=== PATIENT | female | born 1960 | race African-American/Black ===

== ENCOUNTER 2016-12-23 02:27 | Observation (INO) | payer OTHER ==
[2016-12-23] VITALS (9 sets, daily range): BP systolic 134–184; BP diastolic 72–98; PULSE 68–105; RESP 16–22; TEMP 97.8–98.4; O2SAT 91–97
[2016-12-23] MEDS ORDERED: ATEN50TA PO (02:58)
[2016-12-23] MEDS ORDERED: SODIUM CHLORIDE 0.9% FLUSH 10 ML FLUSH IVF PRN (03:00)
[2016-12-23] MEDS ORDERED: methylPREDNISolone SOD SUCC 125 MG/2 ML VIAL IVP ONE (03:00)
[2016-12-23] MEDS: RESP: ALBUTEROL 2.5 MG/IPRATROPIUM 0.5 MG NEB (SCH) INH (03:11)
--- NOTE | 2016-12-23 03:18 | RADRPT ---
EXAM DATE/TIME: 12/23/2016 03:02 [facility] COMPARISON: No previous studies available for comparison. INDICATIONS : Shortness of breath for greater then three months. MEDICAL HISTORY : None. SURGICAL HISTORY : None. ENCOUNTER: Initial ACUITY: 3 months PAIN SCORE: 0/10 LOCATION: Bilateral chest FINDINGS: A single view of the chest demonstrates the lungs to be symmetrically aerated without evidence of mas s, infiltrate or effusion. The cardiomediastinal contours are unremarkable. Osseous structures are intact. CONCLUSION: No acute disease. Darrian Platt MD on December 23, 2016 at 3:17 Board Certified Radiologist. This report was verified electronically.
[2016-12-23 03:47] LABS: AUTOMATED NEUTROPHIL # 5.5 TH/MM3 (1.8-7.7); BASOPHIL # 0.1 TH/MM3 (0-0.2); BASOPHIL % 0.6 % (0.0-2.0); EOSINOPHIL # 0.7 TH/MM3 (0-0.4); EOSINOPHIL % 7.2 % (0.0-4.0); HEMATOCRIT 41.9 % (35.0-46.0); HEMO FLAGS DIFF FINAL; LYMPH % 23.5 % (9.0-44.0); LYMPHOCYTE # 2.1 TH/MM3 (1.0-4.8); MEAN CELL VOLUME 87.9 FL (80.0-100.0); MEAN CORPUSCULAR HEMOGLOBIN 29.8 PG (27.0-34.0); MEAN CORPUSCULAR HGB CONC 33.9 % (32.0-36.0); NEUT % 60.7 % (16.0-70.0); PLATELET COUNT 279 TH/MM3 (150-450); RED BLOOD COUNT 4.77 MIL/MM3 (4.00-5.30); RED CELL DISTRIBUTION WIDTH 13.9 % (11.6-17.2); WHITE BLOOD COUNT 9.1 TH/MM3 (4.0-11.0)
[2016-12-23 03:59] LABS: APTT (PATIENT) 27.7 SEC (24.3-30.1); INTERNATIONAL NORMALIZED RATIO 0.9 RATIO; PROTHROMBIN TIME - PATIENT 10.2 SEC (9.8-11.6)
[2016-12-23 04:10] LABS: ALT (GPT) 29 U/L (10-53); ANION GAP 8 MEQ/L (5-15); AST (GOT) 20 U/L (15-37); BICARBONATE 30.1 MEQ/L (21.0-32.0); BLOOD UREA NITROGEN 21 MG/DL (7-18); CHLORIDE 105 MEQ/L (98-107); GLOMERULAR FILTRATION RATE 83 ML/MIN (>89); POTASSIUM 3.2 MEQ/L (3.5-5.1); SODIUM (NA) 143 MEQ/L (136-145)
[2016-12-23 04:13] LABS: ALKALINE PHOSPHATASE 83 U/L (45-117); TOTAL BILIRUBIN ADULT 0.1 MG/DL (0.2-1.0)
[2016-12-23] MEDS ORDERED: IOHEXOL 350 MG/ML 10 ML VIAL (for RAD DIAG) IV ONE (04:39)
[2016-12-23] MEDS ORDERED: RESP: ALBUTEROL 2.5 MG/3 ML NEB (SCH) NEB ONE (05:00)
--- NOTE | 2016-12-23 05:01 | RADRPT ---
EXAM DATE/TIME: 12/23/2016 04:38 [facility] COMPARISON: CHEST SINGLE AP, December 23, 2016, 3:02. INDICATIONS : Shortness of breath. IV CONTRAST: 74 cc Omnipaque 350 (iohexol) IV RADIATION DOSE: 23.23 CTDIvol (mGy) MEDICAL HISTORY : Hypertension. SURGICAL HISTORY : None. ENCOUNTER: Initial ACUITY: 1 month PAIN SCALE: 0/10 LOCATION: Bilateral chest TECHNIQUE: Volumetric scanning of the chest was performed using a pulmonary embolism protocol MIP images were re constructed. Using automated exposure control and adjustment of the mA and/or kV according to patien t size, radiation dose was kept as low as reasonably achievable to obtain optimal diagnostic quality images. FINDINGS: PULMONARY ARTERIES: No filling defects are seen in the pulmonary arteries through the segmental level. LUNGS: There is no consolidation or pneumothorax . No concerning pulmonary nodule is visualized. PLEURAE: There is no pleural thickening or pleural effusion. MEDIASTINUM: There is good visualization of the great vessels of the middle mediastinum. No evidence of mediastin al or hilar adenopathy/mass. MUSCULOSKELETAL: Within normal limits for patient age. MISCELLANEOUS: The visualized upper abdominal organs demonstrate no acute abnormality. CONCLUSION: Negative exam with no evidence of pulmonary embolism. Darrian Platt MD on December 23, 2016 at 4:58 Board Certified Radiologist. This report was verified electronically.
--- NOTE | 2016-12-23 05:29 | PD ---
HPI Chief Complaint: Respiratory Symptoms Time Seen by Provider: 02:43 Travel History International Travel<30 days: No Contact w/Intl Traveler<30days: No Traveled to known affect area: No History of Present Illness HPI Patient is a 56-year-old female comes in complaining of shortness of breath. She says she's been having issues with shortness of breath since August. She says tonight it got worse when she was at her daughter's. Daughters are worried about her comes in to come in. She says she feels a tightness in her chest, but no pain. She has had cough and congestion. She denies fever or chills. She denies any leg swelling. She has been using an albuterol inhaler at home. She denies any smoking. She has no known heart issues. She has never been diagnosed with asthma before. [facility] Past Medical History Hypertension: Yes Tetanus Vaccination: Unknown ?: Not Past Surgical History Surgical History: No Previous Surgery Social History Alcohol Use: Yes (rarely) Tobacco Use: No Substance Use: No Allergies-Medications (Allergen,Severity, Reaction): Coded Allergies: No Known Allergies (Unverified , 12/23/16) Reported Meds & Prescriptions Reported Meds & Active Scripts Active Reported Atenolol 50 Mg Tab 50 Mg PO DAILY Review of Systems Except as stated in HPI: all other systems reviewed are Neg General / Constitutional: No: Fever, Chills HENT: No: Headaches, Lightheadedness Cardiovascular: No: Chest Pain or Discomfort Respiratory: Positive: Cough, Shortness of Breath, Wheezing Gastrointestinal: No: Nausea, Vomiting, Abdominal Pain Musculoskeletal: No: Myalgias, Edema Skin: No Rash, No Change in Pigmentation Neurologic: No: Weakness, Dizziness Physical Exam Narrative GENERAL: Awake and alert, in no acute distress. SKIN: Focused skin assessment warm/dry. HEAD: Atraumatic. Normocephalic. EYES: Pupils equal and round. No scleral icterus. ENT: Mucous membranes pink and moist. NECK: Trachea midline. No JVD. CARDIOVASCULAR: Regular rate and rhythm. No murmur appreciated. RESPIRATORY: No accessory muscle use. Wheezing throughout both lungs. Breath sounds equal bilaterally. GASTROINTESTINAL: Abdomen soft, non-tender, nondistended. MUSCULOSKELETAL: No obvious deformities. No clubbing. No cyanosis. No edema. NEUROLOGICAL: Awake and alert. No obvious cranial nerve deficits. Motor grossly within normal limits. Normal speech. PSYCHIATRIC: Appropriate mood and affect; insight and judgment normal. Data Data Last Documented VS Vital Signs Date Time Temp Pulse Resp B/P Pulse Ox O2 Delivery O2 Flow Rate FiO2 12/23/16 06:00 92 Room Air 12/23/16 03:24 171/89 12/23/16 03:23 20 12/23/16 02:30 97.9 105 Orders Complete Blood Count With Diff (12/23/16 02:49) Comprehensive Metabolic Panel (12/23/16 02:49) B-Type Natriuretic Peptide (12/23/16 02:49) Act Partial Throm Time (Ptt) (12/23/16 02:49) Prothrombin Time / Inr (Pt) (12/23/16 02:49) Troponin I (12/23/16 02:49) Iv Access Insert/Monitor (12/23/16 02:49) Electrocardiogram (12/23/16 02:49) Ecg Monitoring (12/23/16 02:49) Oximetry (12/23/16 02:49) Oxygen Administration (12/23/16 02:49) Chest, Single Ap (12/23/16 02:49) Ct Pulmonary Angiogram (12/23/16 02:49) Sodium Chloride 0.9% Flush (Ns Flush) (12/23/16 03:00) Methylprednisolone So Succ Inj (Solumedr (12/23/16 03:00) Albuterol-Ipratropium Neb (Duoneb Neb) (12/23/16 03:00) Iohexol 350 Inj (Omnipaque 350 Inj) (12/23/16 04:39) Albuterol Neb (Albuterol Neb) (12/23/16 05:00) Labs Laboratory Tests Test 12/23/16 03:40 White Blood Count 9.1 TH/MM3 Red Blood Count 4.77 MIL/MM3 Hemoglobin 14.2 GM/DL Hematocrit 41.9 % Mean Corpuscular Volume 87.9 FL Mean Corpuscular Hemoglobin 29.8 PG Mean Corpuscular Hemoglobin 33.9 % Concent Red Cell Distribution Width 13.9 % Platelet Count 279 TH/MM3 Mean Platelet Volume 8.6 FL Neutrophils (%) (Auto) 60.7 % Lymphocytes (%) (Auto) 23.5 % Monocytes (%) (Auto) 8.0 % Eosinophils (%) (Auto) 7.2 % Basophils (%) (Auto) 0.6 % Neutrophils # (Auto) 5.5 TH/MM3 Lymphocytes # (Auto) 2.1 TH/MM3 Monocytes # (Auto) 0.7 TH/MM3 Eosinophils # (Auto) 0.7 TH/MM3 Basophils # (Auto) 0.1 TH/MM3 CBC Comment DIFF FINAL Differential Comment Prothrombin Time 10.2 SEC Prothromb Time International 0.9 RATIO Ratio Activated Partial 27.7 SEC Thromboplast Time Sodium Level 143 MEQ/L Potassium Level 3.2 MEQ/L Chloride Level 105 MEQ/L Carbon Dioxide Level 30.1 MEQ/L Anion Gap 8 MEQ/L Blood Urea Nitrogen 21 MG/DL Creatinine 0.86 MG/DL Estimat Glomerular Filtration 83 ML/MIN Rate Random Glucose 122 MG/DL Calcium Level 8.8 MG/DL Total Bilirubin 0.1 MG/DL Aspartate Amino Transf 20 U/L (AST/SGOT) Alanine Aminotransferase 29 U/L (ALT/SGPT) Alkaline Phosphatase 83 U/L Troponin I LESS THAN 0.02 NG/ML B-Type Natriuretic Peptide 12 PG/ML Total Protein 7.8 GM/DL Albumin 3.8 GM/DL [facility] Medical Decision Making Medical Screen Exam Complete: Yes Emergency Medical Condition: Yes Interpretation(s) ECG shows normal sinus rhythm at 99, no ST elevation or depression, normal intervals. Differential Diagnosis Asthma exacerbation versus pneumonia versus PE Narrative Course Patient is a 56-year-old female comes in complaining of shortness of breath. Exam shows wheezing throughout both lungs. IV established, labs sent. Patient connected to the panel monitor. Labs show no acute abnormalities. Chest x-ray shows no acute abnormalities. CTA of the chest shows no evidence of PE, no acute abnormalities. Patient given 3 duo nebs and 125 mg of Solu-Medrol. She reports feeling better after treatment, but saw some wheezing. Given additional albuterol treatment. Patient continues to wheeze. Oxygen saturation is 92% on room air. Patient advised she would likely benefit from admission. She'll be placed in observation for asthma exacerbation. Diagnosis Primary Impression: Asthma Qualified Code: J45.901 - Asthma with acute exacerbation, unspecified asthma severity Admitting Information Admitting Physician Requests: Observation Condition: Stable Saige Azar MD Dec 23, 2016 05:29
[2016-12-23] MEDS ORDERED: ONDANSETRON HCL 4 MG/2 ML VIAL IVP PRN (06:30)
[2016-12-23] MEDS ORDERED: ACETAMINOPHEN/HYDROcodone 325 MG/5 MG TAB PO PRN (06:30)
[2016-12-23] MEDS ORDERED: MAGNESIUM HYDROXIDE SUSP 30 ML CUP PO PRN (06:30)
[2016-12-23] MEDS ORDERED: SENNOSIDES 8.6 MG TAB PO PRN (06:30)
[2016-12-23] MEDS ORDERED: SODIUM CHLORIDE 0.9% FLUSH 10 ML FLUSH IV FLUSH PRN (06:30)
[2016-12-23] MEDS ORDERED: ACETAMINOPHEN 325 MG TAB PO PRN (06:30)
[2016-12-23] MEDS ORDERED: ACETAMINOPHEN/HYDROcodone 325 MG/10 MG TAB PO PRN (06:30)
[2016-12-23] MEDS ORDERED: RESP: ALBUTEROL 2.5 MG/3 ML NEB (PRN) NEB (06:30)
[2016-12-23] MEDS ORDERED: LACTULOSE SYRUP 20 GM/30 ML CUP PO PRN (06:30)
[2016-12-23] MEDS ORDERED: BISACODYL 10 MG SUPP RECTAL PRN (06:30)
[2016-12-23] MEDS ORDERED: POTASSIUM CHLORIDE 20 MEQ CONTROLLED RELEASE TAB PO ONE (06:45)
[2016-12-23] MEDS ORDERED: ATENOLOL 50 MG TAB PO ONE (06:45)
[2016-12-23] MEDS ORDERED: SODIUM CHLOR 0.9% 1000 ML INJ 1,000 ML IV ONE (06:45)
[2016-12-23] MEDS: RESP: ALBUTEROL 2.5 MG/3 ML NEB (SCH) NEB ×4 (07:14→19:46)
[2016-12-23] MEDS: BUDESONIDE-FORMOTEROL 160/4.5 MCG INHALER INH SCH ×2 (09:24→20:59)
[2016-12-23] MEDS: SODIUM CHLORIDE 0.9% FLUSH 10 ML FLUSH IV FLUSH SCH ×2 (09:24→20:59)
[2016-12-23] MEDS: DOCUSATE SODIUM 50 MG/SENNA 8.6 MG TAB PO SCH ×2 (09:25→20:55)
--- NOTE | 2016-12-23 09:31 | EKG ---
Date Performed: 12/23/2016 Time Performed: 03:16:53 PTAGE: 56 years EKG: Sinus rhythm POSSIBLE RIGHT ATRIAL ENLARGEMENT BORDERLINE ECG NO PREVIOUS TRACING DOCTOR: Vinod Estevez Interpretating Date/Time 12/23/2016 09:28:40
--- NOTE | 2016-12-23 10:55 | ECHRPT ---
Indication: SOB CONCLUSIONS Normal left ventricular size and wall thickness. The left ventricular systolic function is normal wi th an estimated ejection fraction in the range of 60-65%. Left ventricular diastolic function parameters a re normal. Doppler parameters are consistent with impaired left ventricular relaxtion (grade 1 diastolic dysfun ction). The right atrial size is upper limits of normal. No mitral valve stenosis. Trace mitral valve regurgitation. The aortic valve is not well visualized. No aortic valve regurgitation. No aortic valve stenosis. There is trace tricuspid valve regurgitation. The pulmonary valve is not well visualized. There is no pericardial effusion. BP: 171 / 89 HR: 105 Rhythm: Sinus MEASUREMENTS (Male / Female) Normal Values Technical Quality:Good 2D ECHO LV Diastolic Diameter PLAX 4.5 cm 4.2 - 5.9 / 3.9 - 5.3 cm LV Systolic Diameter PLAX 3.1 cm IVS Diastolic Thickness 0.9 cm 0.6 - 1.0 / 0.6 - 0.9 cm LVPW Diastolic Thickness 0.6 cm 0.6 - 1.0 / 0.6 - 0.9 cm LV Relative Wall Thickness 0.3 RV Internal Dim ED PLAX 1.9 cm LA Systolic Diameter LX 2.9 cm 3.0 - 4.0 / 2.7 - 3.8 cm M-MODE Aortic Root Diameter MM 2.7 cm AV Cusp Separation MM 1.8 cm DOPPLER AV Peak Velocity 190.0 cm/s AV Peak Gradient 14.4 mmHg LVOT Peak Velocity 141.0 cm/s LVOT Peak Gradient 8.0 mmHg Mitral E Point Velocity 57.3 cm/s Mitral A Point Velocity 106.0 cm/s Mitral E to A Ratio 0.5 TR Peak Velocity 284.0 cm/s TR Peak Gradient 32.3 mmHg FINDINGS LEFT VENTRICLE Normal left ventricular size and wall thickness. The left ventricular systolic function is normal wi th an estimated ejection fraction in the range of 60-65%. Left ventricular diastolic function parameters a re normal. Doppler parameters are consistent with impaired left ventricular relaxtion (grade 1 diastolic dysfun ction). RIGHT VENTRICLE Normal right ventricular size and systolic function. LEFT ATRIUM The left atrial size is normal. RIGHT ATRIUM The right atrial size is upper limits of normal. ATRIAL SEPTUM Normal atrial septal thickness without atrial level shunting by limited color doppler interrogation. AORTA The aortic root and proximal ascending aorta are normal in size on limited imaging. MITRAL VALVE Structurally normal mitral valve. No mitral valve stenosis. Trace mitral valve regurgitation. AORTIC VALVE The aortic valve is not well visualized. No aortic valve regurgitation. No aortic valve stenosis. TRICUSPID VALVE There is trace tricuspid valve regurgitation. PULMONARY VALVE The pulmonary valve is not well visualized. VESSELS The inferior vena cava is normal in size. PERICARDIUM There is no pericardial effusion. Aaron David MD (Electronically Signed) Final Date:23 December 2016 10:54
--- NOTE | 2016-12-23 11:11 | HHI.HP ---
[facility] Service [place] [facility] Primary Care Physician Non-Staff Admission Diagnosis Asthma exacerbation Diagnoses: Chief Complaint: shortness of breath Travel History International Travel<30 Days: No Contact w/Intl Traveler <30 Da: No Traveled to Known Affected Are: No History of Present Illness 56-year-old female with history of hypertension, GERD, presents with acute worsening shortness of breath x1day. The patient reports no history of asthma or tobacco use, however back in July 2016 she developed a cold, then got her flu shot. Shortly after the flu shot she developed a chronic cough and felt "sick all the time". She visited the ER on a few separate occasions in [place] where she lives, prescribed courses of prednisone, azithromycin, and an albuterol inhaler. She believes the antibiotics did help for short time however her cough returned, and is now productive of clear to yellow sputum. She was also prescribed an albuterol inhaler that she has been using occasionally. She is in town for her brothers birthday republican, was in the bathroom last night where it was very hot, when she developed acute onset of shortness of breath and wheezing around 1am. She believes the heat exacerbated her symptoms. She states she couldn't catch her breath and panicked, therefore she had her family members bring her to the ER. Recently she has been taking an [id number] decongestant which she feels is helping to loosen up her mucus. Denies any fevers/chills or sick contacts. She reports constant wheezing , worse always at the left anterior chest. After a few months of having the cough, she developed left anterior chest pain, described as sharp pains, aggravated by coughing and deep inspiration. She denies any prior cardiac history or work up. She denies any significant exposure to second hand smoke as a child. 2 of her children have been diagnosed with asthma. Nobody in the family has COPD. She has no other medical complaints at this time. Review of Systems Except as stated in HPI: all other systems reviewed are Neg Past Family Social History Past Medical History Hypertension GERD Bronchitis Past Surgical History None Reported Medications Atenolol 50 Mg Tab 50 Mg PO DAILY Zantac 150mg bid Allergies: Coded Allergies: No Known Allergies (Unverified , 12/23/16) Active Ordered Medications Current Medications Medications (Trade) Dose Ordered Sig/Saud Route Start Time Stop Time Status Last Admin (NS Flush) 2 ml UNSCH PRN IVF 12/23/16 03:00 (SoluMEDROL INJ) 40 mg Q6HR IV PUSH 12/23/16 12:00 (Symbicort 160-4.5 Inh) 2 puff Q12HR INH 12/23/16 09:00 12/23/16 09:24 (NS Flush) 2 ml UNSCH PRN IV FLUSH 12/23/16 06:30 (NS Flush) 2 ml BID IV FLUSH 12/23/16 09:00 12/23/16 09:24 (Zofran Inj) 4 mg Q6H PRN IVP 12/23/16 06:30 (Tylenol) 650 mg Q6H PRN PO 12/23/16 06:30 ([place] 5-325 Mg) 1 tab Q4H PRN PO 12/23/16 06:30 ([place] 10-325 Mg) 1 tab Q4H PRN PO 12/23/16 06:30 (Sharla-Colace) 1 tab BID PO 12/23/16 09:00 (Milk Of Magnesia Liq) 30 ml Q12H PRN PO 12/23/16 06:30 (Senokot) 17.2 mg Q12H PRN PO 12/23/16 06:30 (Dulcolax Supp) 10 mg DAILY PRN RECTAL 12/23/16 06:30 Lactulose 30 ml 30 ml DAILY PRN PO 12/23/16 06:30 (NS 1000 ml Inj) 1,000 ml @ 100 mls/hr Q10H ONCE IV 12/23/16 06:45 12/23/16 16:44 12/23/16 06:44 Family History 2 children with asthma Mother, brother, and maternal grandmother with type 2 diabetes Father with hypertension, stroke Social History Denies any tobacco, alcohol, or illicit drug use Has 4 children Physical Exam Vital Signs Vital Signs Date Time Temp Pulse Resp B/P Pulse Ox O2 Delivery O2 Flow Rate FiO2 12/23/16 07:41 98.2 96 20 137/92 95 12/23/16 06:23 95 22 176/84 97 Nasal Cannula 2 12/23/16 06:00 92 Room Air 12/23/16 03:24 171/89 12/23/16 03:23 98 12/23/16 03:23 20 12/23/16 02:30 97.9 105 20 184/98 94 Room Air Physical Exam GENERAL: Well-nourished, well-developed middle aged female patient in [facility]. SKIN: Warm and dry. No rash. HEAD: Normocephalic. Atraumatic. EYES: Pupils equal and round. No scleral icterus. No injection or drainage. ENT: No nasal bleeding or discharge. Mucous membranes pink and moist. NECK: Supple. Trachea midline. CARDIOVASCULAR: Regular rate and rhythm. S1, S2 noted. No murmur appreciated. RESPIRATORY: No accessory muscle use. Left lung with diffuse wheezing and scattered rhonchi, right lung with minimal wheezing. GASTROINTESTINAL: Abdomen soft, non-tender, nondistended. Normoactive bowel sounds x4. MUSCULOSKELETAL: No obvious deformities. Extremities without clubbing, cyanosis , or edema. Bilateral calves nontender. NEUROLOGICAL: Awake and alert. No obvious cranial nerve deficits. Motor grossly within normal limits. Normal speech. PSYCHIATRIC: Appropriate mood and affect; insight and judgment normal. Laboratory Laboratory Tests Test 12/23/16 03:40 White Blood Count 9.1 Red Blood Count 4.77 Hemoglobin 14.2 Hematocrit 41.9 Mean Corpuscular Volume 87.9 Mean Corpuscular Hemoglobin 29.8 Mean Corpuscular Hemoglobin 33.9 Concent Red Cell Distribution Width 13.9 Platelet Count 279 Mean Platelet Volume 8.6 Neutrophils (%) (Auto) 60.7 Lymphocytes (%) (Auto) 23.5 Monocytes (%) (Auto) 8.0 Eosinophils (%) (Auto) 7.2 Basophils (%) (Auto) 0.6 Neutrophils # (Auto) 5.5 Lymphocytes # (Auto) 2.1 Monocytes # (Auto) 0.7 Eosinophils # (Auto) 0.7 Basophils # (Auto) 0.1 CBC Comment DIFF FINAL Differential Comment Prothrombin Time 10.2 Prothromb Time International 0.9 Ratio Activated Partial 27.7 Thromboplast Time Sodium Level 143 Potassium Level 3.2 Chloride Level 105 Carbon Dioxide Level 30.1 Anion Gap 8 Blood Urea Nitrogen 21 Creatinine 0.86 Estimat Glomerular Filtration 83 Rate Random Glucose 122 Calcium Level 8.8 Total Bilirubin 0.1 Aspartate Amino Transf 20 (AST/SGOT) Alanine Aminotransferase 29 (ALT/SGPT) Alkaline Phosphatase 83 Troponin I LESS THAN 0.02 B-Type Natriuretic Peptide 12 Total Protein 7.8 Albumin 3.8 Result Diagram: 12/23/1633912/23/16339 Imaging Last Impressions Chest X-Ray 12/23/16248 Signed Impressions: Service Date/Time: Friday, December 23, 2016 03:02 - CONCLUSION: No acute disease. Darrian Platt MD CT Angiography 12/23/16248 Signed Impressions: Service Date/Time: Friday, December 23, 2016 04:38 - CONCLUSION: Negative exam with no evidence of pulmonary embolism. Darrian Platt MD Assessment and Plan Problem List: (1) Acute bronchitis ICD Code: J20.9 Status: Acute (2) Asthma ICD Code: J45.909 Status: Acute Assessment and Plan 56-year-old female with history of hypertension and GERD presents with acute onset of shortness of breath Acute on Chronic Bronchitis, possible Asthma Exacerbation: no previous diagnosis of asthma. CXR images reviewed, no acute findings. CT-PA negative for PE. Patient with significant wheezing on exam. -Continue steroids with IV Solumedrol 40mg q6h -Continue albuterol nebs q4h saud and q2h prn -In light of productive cough, will start on Levaquin 750mg qd x5days -Mucinex bid, Tessalon prn cough -O2 as needed -start Acapella -check sputum culture -Will need outpatient PFTs after discharge Atypical Chest Pain: suspect pleuritic, exacerbated by cough and deep inspiration. -Will rule out ACS with serial cardiac enzymes and EKGs, first set unremarkable -Check echocardiogram -[place] prn pain Hypertension: not well controlled -continue patient's atenolol -consider adding additional antihypertensives, however current BP 137/92 -clonidine prn, IV Vasotec prn Hypokalemia: K 3.2. -given po KCl replacement -repeat BMP in the am Elevated Blood Glucose: random glucose 122, possibly secondary to steroid use although she has family history of type 2 diabetes -will check HgbA1c DVT Prophylaxis: teds/SCDs Code Status Full Code Discussed Condition With Patient, Dr. Dawkins Attending Statement Seen in her bedroom in the presence of NGOC Mrs. Lyndsay Cohn will continue management I do not have clear her Diagnosis, will need to rule out Cardiac Pathology asked for Echocardiogram her Chest X ray and CTA are negative. patient examined and did not found any sign of Asthma no wheezing, no crackles. Problem Qualifiers (1) Asthma: Qualified Code: J45.901 - Asthma with acute exacerbation, unspecified asthma severity Lyndsay Cohn PA-C Dec 23, 2016 11:11 Aaron Scott MD Dec 23, 2016 15:28
[2016-12-23 12:13] LABS: CKMB 3.7 NG/ML (0.5-3.6)
[2016-12-23 12:13] LABS: AMPHETAMINE, URINE NEG (NEG); BARBITURATES, URINE NEG (NEG); COCAINE, URINE NEG (NEG)
[2016-12-23] MEDS ORDERED: BENZONATATE 100 MG CAP PO PRN (12:30)
[2016-12-23] MEDS ORDERED: cloNIDine HCL 0.1 MG TAB PO PRN (12:30)
[2016-12-23] MEDS ORDERED: ENALAPRILAT 1.25 MG/ML VIAL IV PUSH PRN (12:30)
[2016-12-23] MEDS: guaiFENesin E.R. 600 MG TAB PO SCH ×2 (13:52→20:55)
[2016-12-23] MEDS: methylPREDNISolone SOD SUCC 40 MG/1 ML VIAL IV PUSH SCH ×3 (13:52→23:49)
[2016-12-23] MEDS: LEVOFLOXACIN 750 MG TAB PO SCH (15:11)
[2016-12-23 17:54] LABS: CREATINE KINASE 249 U/L (26-192)
[2016-12-23] MEDS: SODIUM CHLOR 0.9% 1000 ML INJ 1,000 ML IV SCH (18:15)
[2016-12-23 22:11] LABS: BICARBONATE 25.6 MEQ/L (21.0-32.0); MAGNESIUM 2.4 MG/DL (1.5-2.5); POTASSIUM 3.7 MEQ/L (3.5-5.1)
[2016-12-24] MEDS: SODIUM CHLOR 0.9% 1000 ML INJ 1,000 ML IV SCH (05:13)
[2016-12-24] MEDS: methylPREDNISolone SOD SUCC 40 MG/1 ML VIAL IV PUSH SCH (05:13)
[2016-12-24 05:45] LABS: AUTOMATED NEUTROPHIL # 11.7 TH/MM3 (1.8-7.7); BASOPHIL % 0.2 % (0.0-2.0); HEMATOCRIT 40.5 % (35.0-46.0); HEMO FLAGS DIFF FINAL; LYMPHOCYTE # 1.2 TH/MM3 (1.0-4.8); MEAN CELL VOLUME 88.6 FL (80.0-100.0); MEAN CORPUSCULAR HEMOGLOBIN 29.3 PG (27.0-34.0); MEAN CORPUSCULAR HGB CONC 33.1 % (32.0-36.0); MONO % 3.8 % (0.0-8.0); PLATELET COUNT 278 TH/MM3 (150-450); RED BLOOD COUNT 4.58 MIL/MM3 (4.00-5.30); WHITE BLOOD COUNT 13.5 TH/MM3 (4.0-11.0)
[2016-12-24 06:17] LABS: ANION GAP 9 MEQ/L (5-15); AST (GOT) 11 U/L (15-37); BICARBONATE 25.5 MEQ/L (21.0-32.0); BLOOD UREA NITROGEN 21 MG/DL (7-18); CHLORIDE 106 MEQ/L (98-107); GLOMERULAR FILTRATION RATE 115 ML/MIN (>89); POTASSIUM 4.1 MEQ/L (3.5-5.1); SODIUM (NA) 140 MEQ/L (136-145)
[2016-12-24 06:18] LABS: ALT (GPT) 25 U/L (10-53)
[2016-12-24 06:20] LABS: ALKALINE PHOSPHATASE 64 U/L (45-117); TOTAL BILIRUBIN ADULT 0.2 MG/DL (0.2-1.0)
[2016-12-24 07:35] VITALS: BP 166/85; PULSE 83; RESP 18; TEMP 98; O2SAT 93
[2016-12-24] MEDS: RESP: ALBUTEROL 2.5 MG/3 ML NEB (SCH) NEB ×2 (07:40→12:23)
[2016-12-24] MEDS: BUDESONIDE-FORMOTEROL 160/4.5 MCG INHALER INH SCH (08:23)
[2016-12-24] MEDS: SODIUM CHLORIDE 0.9% FLUSH 10 ML FLUSH IV FLUSH SCH (08:24)
[2016-12-24] MEDS: guaiFENesin E.R. 600 MG TAB PO SCH (08:24)
[2016-12-24] MEDS: DOCUSATE SODIUM 50 MG/SENNA 8.6 MG TAB PO SCH (08:25)
[2016-12-24] MEDS ORDERED: amLODIPine BESYLATE 5 MG TAB PO SCH (09:00)
[2016-12-24] MEDS ORDERED: predniSONE 20 MG TAB PO SCH (10:00)
--- NOTE | 2016-12-24 10:29 | HHI.PR ---
Subjective Remarks Followup for acute restrictive airway disease Pt reported breathing better and attributed to treatments and medications received. Pt reported wheezing continues. Reviewed medications for her hypertension and she reported cough with lisinopril and wheezing since being on atenolol. Pt stated she has Proair inhaler at home and has been using her daughter's nebulizer and said she felt the dosage needed to be "for an adult." Cough is reported, but is mild. dyspnea upon exertion is denied; pt reported recently walking to the bathroom without difficulty. She denied fever, NVD, or other complaints. No new issues noted or reported. Objective Vitals Vital Signs Date Time Temp Pulse Resp B/P Pulse Ox O2 Delivery O2 Flow Rate FiO2 12/24/16 07:35 98.0 83 18 166/85 93 12/23/16 23:46 98.0 104 18 175/81 93 12/23/16 19:38 98.4 102 16 140/90 91 12/23/16 17:37 97.8 68 18 134/72 97 I/O 12/23/16 12/23/16 12/23/16 12/24/16 12/24/16 12/24/16 07:00 15:00 23:00 07:00 15:00 23:00 Intake Total 720 ml Output Total 850 ml Balance -130 ml Intake Oral 720 ml Output Urine Total 850 ml Result Diagram: 12/24/16 0459 12/24/16 0459 Other Results Laboratory Tests Test 12/23/16 12/23/16 12/23/16 12/23/16 03:40 11:38 17:06 21:18 Prothrombin Time 10.2 SEC Prothromb Time International 0.9 RATIO Ratio Activated Partial 27.7 SEC Thromboplast Time B-Type Natriuretic Peptide 12 PG/ML Urine Opiates Screen NEG Urine Barbiturates Screen NEG Urine Amphetamines Screen NEG Urine Benzodiazepines Screen NEG Urine Cocaine Screen NEG Urine Cannabinoids Screen NEG Creatine Kinase MB 4.0 NG/ML Creatine Kinase MB % 1.6 % Troponin I LESS THAN 0.02 NG/ML Magnesium Level 2.4 MG/DL Test 12/24/16 04:59 White Blood Count 13.5 TH/MM3 Red Blood Count 4.58 MIL/MM3 Hemoglobin 13.4 GM/DL Hematocrit 40.5 % Mean Corpuscular Volume 88.6 FL Mean Corpuscular Hemoglobin 29.3 PG Mean Corpuscular Hemoglobin 33.1 % Concent Red Cell Distribution Width 14.0 % Platelet Count 278 TH/MM3 Mean Platelet Volume 9.2 FL Neutrophils (%) (Auto) 87.0 % Lymphocytes (%) (Auto) 9.0 % Monocytes (%) (Auto) 3.8 % Eosinophils (%) (Auto) 0.0 % Basophils (%) (Auto) 0.2 % Neutrophils # (Auto) 11.7 TH/MM3 Lymphocytes # (Auto) 1.2 TH/MM3 Monocytes # (Auto) 0.5 TH/MM3 Eosinophils # (Auto) 0.0 TH/MM3 Basophils # (Auto) 0.0 TH/MM3 CBC Comment DIFF FINAL Differential Comment Sodium Level 140 MEQ/L Potassium Level 4.1 MEQ/L Chloride Level 106 MEQ/L Carbon Dioxide Level 25.5 MEQ/L Anion Gap 9 MEQ/L Blood Urea Nitrogen 21 MG/DL Creatinine 0.65 MG/DL Estimat Glomerular Filtration 115 ML/MIN Rate Random Glucose 145 MG/DL Calcium Level 9.2 MG/DL Total Bilirubin 0.2 MG/DL Aspartate Amino Transf 11 U/L (AST/SGOT) Alanine Aminotransferase 25 U/L (ALT/SGPT) Alkaline Phosphatase 64 U/L Total Creatine Kinase 167 U/L Total Protein 7.1 GM/DL Albumin 3.5 GM/DL Imaging Last Impressions Chest X-Ray 12/23/16248 Signed Impressions: Service Date/Time: Friday, December 23, 2016 03:02 - CONCLUSION: No acute disease. Darrian Platt MD CT Angiography 12/23/16248 Signed Impressions: Service Date/Time: Friday, December 23, 2016 04:38 - CONCLUSION: Negative exam with no evidence of pulmonary embolism. Darrian Platt MD Objective Remarks GENERAL: Pt encountered laying abed, NAD. SKIN: Warm and dry. HEAD: Normocephalic. EYES: No scleral icterus. No injection or drainage. NECK: Supple, trachea midline. No lymphadenopathy. No bruits noted. CARDIOVASCULAR: Regular rate and rhythm without murmurs, gallops, or rubs. RESPIRATORY: Expiratory wheeze noted in left lung base. Some milder wheezing heard in later exhalation in upper [place], bilaterally. No accessory muscle use. GASTROINTESTINAL: Abdomen soft, non-tender, nondistended. MUSCULOSKELETAL: No cyanosis, or edema. PSYCHIATRIC: a&oX3, No overt signs of depression and/or anxiety. Pleasant and cooperative. Procedures No procedures performed. Medications and IVs Current Medications Medications (Trade) Dose Ordered Sig/Saud Route Start Time Stop Time Status Last Admin (NS Flush) 2 ml UNSCH PRN IVF 12/23/16 03:00 (Symbicort 160-4.5 Inh) 2 puff Q12HR INH 12/23/16 09:00 12/24/16 08:23 (NS Flush) 2 ml UNSCH PRN IV FLUSH 12/23/16 06:30 (NS Flush) 2 ml BID IV FLUSH 12/23/16 09:00 12/24/16 08:24 (Zofran Inj) 4 mg Q6H PRN IVP 12/23/16 06:30 (Tylenol) 650 mg Q6H PRN PO 12/23/16 06:30 (Nettie 5-325 Mg) 1 tab Q4H PRN PO 12/23/16 06:30 (Nettie 10-325 Mg) 1 tab Q4H PRN PO 12/23/16 06:30 (Sharla-Colace) 1 tab BID PO 12/23/16 09:00 12/23/16 20:55 (Milk Of Magnesia Liq) 30 ml Q12H PRN PO 12/23/16 06:30 (Senokot) 17.2 mg Q12H PRN PO 12/23/16 06:30 (Dulcolax Supp) 10 mg DAILY PRN RECTAL 12/23/16 06:30 (Lactulose Liq) 30 ml DAILY PRN PO 12/23/16 06:30 (Levaquin) 750 mg Q24H PO 12/23/16 13:00 12/28/16 12:59 12/23/16 15:11 (Mucinex Er) 600 mg BID PO 12/23/16 12:30 12/24/16 08:24 (Tessalon) 100 mg Q6H PRN PO 12/23/16 12:30 12/23/16 18:07 (Catapres) 0.1 mg Q6H PRN PO 12/23/16 12:30 (Vasotec Inj) 1.25 mg Q8H PRN IV PUSH 12/23/16 12:30 (Norvasc) 5 mg DAILY PO 12/24/16 09:00 12/24/16 08:25 (Deltasone) 20 mg BID PO 12/24/16 10:00 12/24/16 10:12 Urinary Catheter: No Vascular Central Line Catheter: No A/P Problem List: (1) Acute bronchitis ICD Code: J20.9 Status: Acute (2) Asthma ICD Code: J45.909 Status: Acute Assessment and Plan 56-year-old female with history of hypertension and GERD presents with acute onset of shortness of breath Acute on Chronic Bronchitis, possible Asthma Exacerbation: no previous diagnosis of asthma. CXR images reviewed, no acute findings. CT-PA negative for PE. Patient continues to have wheezing on exam yet is on room air and is clinically improved. -Changed IV steroids to oral. -Continue albuterol nebs q4h saud and q2h prn -In light of productive cough, will start on Levaquin 750mg qd x5days -Mucinex bid, Tessalon prn cough -O2 as needed -start Acapella -sputum culture obtained, no bacteria present. -Will need outpatient PFTs after discharge Atypical Chest Pain: suspect pleuritic, exacerbated by cough and deep inspiration. -Ruled out ACS with serial cardiac enzymes and EKGs. -Echocardiogram results indicated EF of 60-65% and Grade 1 diastolic dysfunction. Hypertension: not well controlled -discontinue patient's atenolol, initiate treatment with amlodipine 10 mg po daily. -consider adding additional antihypertensives. -clonidine prn. Hypokalemia: K 3.2. -given po KCl replacement -Level improved to 4.1 this morning. Elevated Blood Glucose: random glucose 122, possibly secondary to steroid use although she has family history of type 2 diabetes -will check HgbA1c, results still pending. Pt may need to follow-up with PCP regarding results. DVT Prophylaxis: teds/SCDs Discharge Planning Pt to be discharged home. Attending Statement Chelsea improved condition okay to discharge Home and she will need to follow with PCP Problem Qualifiers (1) Asthma: Qualified Code: J45.901 - Asthma with acute exacerbation, unspecified asthma severity Damien Eubanks Jr. Dec 24, 2016 10:29 Aaron Scott MD Dec 24, 2016 17:00
[2016-12-24 11:19] VITALS: BP 190/102; PULSE 104; RESP 17; TEMP 98.2; O2SAT 97
[2016-12-24 11:31] VITALS: BP 166/94
[2016-12-24] MEDS ORDERED: cloNIDine HCL 0.1 MG TAB PO ONE (12:00)
[2016-12-24] MEDS ORDERED: amLODIPine BESYLATE 5 MG TAB PO ONE (12:00)
[2016-12-24] MEDS: LEVOFLOXACIN 750 MG TAB PO SCH (12:39)
[2016-12-24 13:57] VITALS: BP 145/89
[2016-12-24] MEDS ORDERED: PRED20 PO (14:07)
[2016-12-24] MEDS ORDERED: LEVA750T9 PO (14:07)
[2016-12-24] MEDS ORDERED: AMLO10TA2 PO (14:07)
[2016-12-24 16:05] LABS: HEMOGLOBIN A1a 0.8 %; HEMOGLOBIN A1b 1.8 %; HEMOGLOBIN Ao 84.5 %; HEMOGLOBIN LA1C 1.9 %; HEMOGLOBIN P3 4.1 %
--- NOTE | 2016-12-24 18:24 | EKG ---
Date Performed: 12/23/2016 Time Performed: 10:21:24 PTAGE: 56 years EKG: Sinus rhythm POSSIBLE LEFT ATRIAL ENLARGEMENT When compared to previous tracing, baseline abnormality is new. STEVEN SHAW ECG PREVIOUS TRACING : 12/23/2016 03.16 DOCTOR: Randall Brandon Interpretating Date/Time 12/24/2016 18:22:44
--- NOTE | 2016-12-24 18:24 | EKG ---
Date Performed: 12/23/2016 Time Performed: 15:54:15 PTAGE: 56 years EKG: Sinus rhythm POSSIBLE LEFT ATRIAL ENLARGEMENT Since previous tracing, no significant change noted BORDERLINE ECG PREVIOUS TRACING : 12/23/2016 10.21 DOCTOR: Randall Brandon Interpretating Date/Time 12/24/2016 18:23:37
== END 2016-12-24 15:49 | disposition home or self-care (01) ==
LOC: NEPC 02:27 → NEDA 06:30 → NEPHCDU 07:42
PROVIDERS: ADMIT Internal Medicine; ATTEND Internal Medicine
DX: J45.901 Unspecified asthma with (acute) exacerbation (principal); J20.9 Acute bronchitis, unspecified; I10 Essential (primary) hypertension; K21.9 Gastro-esophageal reflux disease without esophagitis; E87.6 Hypokalemia; R73.9 Hyperglycemia, unspecified; Z79.899 Other long term (current) drug therapy
CPT/HCPCS: 71010; 71275; 80048; 80053; 80307; 82550; 82552; 83036; 83735; 83880; 84484; 85025; 85610; 85730; 87070; 87205; 93005; 93306; 94640; 94664; 94668; 96361; 96374; 96376; 99285; G0378; J2920; J2930; J7030; J7512; J7613; Q9967